=== PATIENT | female | born 1960 | race African-American/Black ===

== ENCOUNTER 2016-06-20 00:36 | Emergency (ER) | payer MEDICARE, OTHER ==
[~2016-06-20] VITALS: Ht 170.2 cm; Wt 80.5 kg
[~2016-06-20 00:36] MED LIST: ASPI81TA3 PO; GABA100C PO; INSU100I14 SC; LEVEM SC; LORA1TAB PO
[2016-06-20 00:56] VITALS: Ht 170.2 cm; Wt 80.5 kg
--- NOTE | 2016-06-20 03:06 | ERA ---
ER Documentation Chief Complaint Date/Time DATE: 06/20/16 TIME: 03:05 Chief Complaint burning while urinating,bl leg swelling,lower back pain denies cp HPI The patient is a 55-year-old female, presenting to the ER because of multiple complaints. She complained of painful urination for 1 day, acute on chronic bilateral leg edema for the last 2 days, chronic low back pain, right index finger pain for 10 days. She was seen and treated for cellulitis with Keflex for the last 10 days with minimal response. She denies fever, chills, neck pain , chest pain, dyspnea, abdominal pain, vomiting, diarrhea, constipation. He does not smoke, drink Past medical history: Diabetes mellitus, hypertension, history of GBS Past surgical history: Ectopic , back surgery ROS All systems reviewed and are negative except as per history of present illness. Medications Home Meds Active Scripts Ondansetron (Ondansetron Odt) 4 Mg Tab.rapdis, 4 MG PO Q6H Y for NAUSEA AND/OR VOMITING, #10 TAB Prov:MAYO BHARDWAJ MD 06/20/16 Hydrocodone/Acetaminophen ([place] 5-325 Tablet) 1 Each Tablet, 1 TAB PO Q6H Y for PAIN, #7 TAB Prov:MAYO BHARDWAJ MD 06/20/16 Amoxicillin/Potassium Clav (Amox-Clav 875-125 mg Tablet) 875-125 mg Tab, 1 TAB PO BID for 10 Days, #20 TAB Prov:MAYO BHARDWAJ MD 06/20/16 Gabapentin* (Neurontin*) 100 Mg Capsule, 100 MG PO TID for 10 Days, #30 CAP Prov:JARROD VEE DO 12/11/15 Reported Medications Aspirin* (Aspirin* Chew) 81 Mg Tab.chew, 81 MG PO DAILY, TAB.CHEW 12/11/15 Insulin Detemir* (Levemir*) 100 U/Ml Vial, 30 UNIT SC HS, VIAL 06/16/15 Insulin Lispro (Humalog) 100 U/Ml Insuln.pen, 0 SC SLIDING SCALE AC, EA 04/14/15 Lorazepam* (Lorazepam*) 1 Mg Tablet, 1 MG PO BID Y for ANXIETY, TAB 02/05/15 Insulin Detemir* (Levemir*) 100 U/Ml Vial, 25 UNIT SC AM, VIAL 02/05/15 Allergies Allergies: Coded Allergies: No Known Allergies (Verified Allergy, Mild, 06/16/15) PMhx/Soc History of Surgery: Yes (tubaligation, gallbladder, l spine tumor, trach) Anesthesia Reaction: No 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 Head: Atraumatic. Eyes: Normal Conjunctiva. ENT: Normal External Ears, Nose and Mouth. Neck: Full range of motion. No meningismus. Resp: Clear to auscultation bilaterally. Cardio: Regular but tachycardic Abd: Soft, non distended, normal bowel sounds, non tender. Skin: No petechiae or rashes. Back: No midline or flank tenderness. Ext: Mild bilateral leg edema, vague bilateral calf tenderness, right index finger with paronychia with pus pocket underneath the fingernail Neur: Awake and alert. No focal deficit Psych: Normal Mood and Affect. Result Diagram: 06/20/16 0418 06/20/16 0418 Results 24 hrs Laboratory Tests Test 06/20/16 04:18 06/20/16 04:23 Activated Partial Thromboplast Time 25.2Sec Anion Gap 17 B-Type Natriuretic Peptide 25PG/ML Basophils # 0.010^3/ul Basophils % 0.8% Blood Urea Nitrogen 10mg/dl Calcium Level 9.3mg/dl Carbon Dioxide Level 26mmol/L Chloride Level 100mmol/L Creatinine 0.51mg/dl Eosinophils # 0.110^3/ul Eosinophils % 2.1% Glucose Level 408mg/dl Hematocrit 40.4% Hemoglobin 14.1g/dl INR International Normalized Ratio 0.94 Lymphocytes # 1.510^3/ul Lymphocytes % 27.7% Mean Corpuscular Hemoglobin 31.5pg Mean Corpuscular Hemoglobin Concent 34.9g/dl Mean Corpuscular Volume 90.2fl Mean Platelet Volume 8.4fl Monocytes # 0.410^3/ul Monocytes % 6.7% Neutrophils # 3.510^3/ul Neutrophils % 62.7% Nucleated Red Blood Cells # 0.010^3/ul Nucleated Red Blood Cells % 0.0/100WBC Platelet Count 67866^3/UL Potassium Level 3.9mmol/L Prothrombin Time 12.6Sec Prothrombin Time Ratio 1.0 Red Blood Count 4.4810^6/ul Red Cell Distribution Width 12.0% Sodium Level 139mmol/L White Blood Count 5.510^3/ul Bedside Urine Blood Negative Bedside Urine Glucose (UA) 0.50% Bedside Urine Ketones (LAB) 2+ Bedside Urine Leukocyte Esterase (L Negative Bedside Urine Nitrite (LAB) Negative Bedside Urine Protein (LAB) Negative Bedside Urine pH (LAB) 5.5 Current Medications Medications (Trade) Dose Ordered Sig/Sheryl Route PRN Reason Start Time Stop Time Status Last Admin Dose Admin Lidocaine (Xylocaine 1% (Mdv) 20 ml) 20 ml ONCE STAT INJ 06/20/16 03:20 06/20/16 03:25 DC Insulin Human Regular (Humulin R) 10 unit ONCE ONCE SC 06/20/16 05:30 06/20/16 05:34 DC Procedures/MDM Procedure: Right index finger paronychia I&D Risks, benefits, alternatives were explained to the patient The right index finger was digitally blocked with lidocaine 1%. The pus pocket underneath the fingernail was evacuated. An incision was made at the proximal fingernail, small amount of pus was expressed. It was dressed with Xeroform. EKG: Read by emergency physician Rate/Rhythm: Sinus tachycardia 104 beats per min QRS, ST, T-waves: No ST elevation, no T wave inversion, low voltage Impression: Abnormal EKG MEDICAL MAKING DECISION: The patient is a 55-year-old female, presenting with acute right index finger paronychia, acute on chronic bilateral leg edema, acute diabetic hyperglycemia. She was treated with regular insulin 10 units subcutaneously for acute diabetic hyperglycemia. The differential diagnoses considered include but are not limited to cellulitis, abscess, CHF, DKA Departure Diagnosis: Primary Impression: Paronychia of right index finger Additional Impressions: Hyperglycemia due to type 2 diabetes mellitus Peripheral edema Condition: Good Comments She was discharged with Augmentin, Zofran ODT, [place] She was advised to return in 2 days for wound check MAYO BHARDWAJ MD Jun 20, 2016 03:05
[2016-06-20 03:09] VITALS: BP 131/83; PULSE 104; RESP 20
[2016-06-20] MEDS ORDERED: LIDOCAINE 1% (MDV) 20 ML INJ INJ STA (03:20)
[2016-06-20 04:24] LABS: URINE BLOOD (Dip) POC Negative (NEGATIVE)
[2016-06-20 04:37] LABS: BASOPHILS % 0.8 % (0.0-2.0); EOSINOPHILS # 0.1 10^3/ul (0.0-0.5); EOSINOPHILS % 2.1 % (0.0-7.0); HEMATOCRIT 40.4 % (37.0-47.0); HEMOGLOBIN 14.1 g/dl (12.0-16.0); LYMPHOCYTES # 1.5 10^3/ul (0.8-2.9); LYMPHOCYTES % 27.7 % (15.0-51.0); MEAN CORPUSCULAR HEMOGLOBIN 31.5 pg (29.0-33.0); MEAN CORPUSCULAR HGB CONC 34.9 g/dl (32.0-37.0); MEAN CORPUSCULAR VOLUME 90.2 fl (82.0-101.0); MEAN PLATELET VOLUME 8.4 fl (7.4-10.4); MONOCYTE # 0.4 10^3/ul (0.3-0.9); MONOCYTES % 6.7 % (0.0-11.0); NEUTROPHIL # 3.5 10^3/ul (1.6-7.5); NEUTROPHILS % 62.7 % (39.0-77.0); PLATELET COUNT 252 10^3/UL (140-440); RED BLOOD COUNT 4.48 10^6/ul (4.20-5.40); UNCORRECTED WBC 5.5 10^3/ul (4.8-10.8); WHITE BLOOD COUNT 5.5 10^3/ul (4.8-10.8)
[2016-06-20 04:39] LABS: CONDITION 1
[2016-06-20 04:44] LABS: POTASSIUM 3.9 mmol/L (3.5-5.1)
[2016-06-20 04:46] LABS: INR 0.94; PROTIME 12.6 Sec (12.2-14.2)
[2016-06-20 04:47] LABS: CREATININE 0.51 mg/dl (0.44-1.00); PARTIAL THROMBOPLASTIN TIME 25.2 Sec (25.0-35.0)
[2016-06-20 04:48] LABS: CALCIUM 9.3 mg/dl (8.4-10.2)
--- NOTE | 2016-06-20 04:55 | RADRPT ---
PROCEDURE: XR Chest. CLINICAL INDICATION: Shortness of breath. TECHNIQUE: AP Portable chest. COMPARISON: 12/11/2015 FINDINGS: The cardiomediastinal silhouette is normal. The lungs are clear. The osseous structures are unrema rkable. IMPRESSION: No acute findings. RPTAT: HIKT .Jayden Phelps MD, MD Date Time Electronically viewed and signed by .Jayden Phelps MD, MD on 06/20/2016 04:54 .T/
--- NOTE | 2016-06-20 04:55 | RADRPT ---
PROCEDURE: US bilateral lower extremity venous Doppler CLINICAL INDICATION: Bilateral swelling TECHNIQUE: Multiple sonographic images of the bilateral lower extremity deep venous system was obt ained utilizing grayscale, color-flow, compressive sonography and Doppler imaging with augmentation. COMPARISON: There are no similar studies submitted for comparison. FINDINGS: There is normal compressibility and flow within the bilateral common femoral, superficial femoral, p opliteal, and calf veins. IMPRESSION: No evidence of DVT within the lower extremities. RPTAT: HIKT .Jayden Phelps MD, MD Date Time Electronically viewed and signed by .Jayden Phelps MD, MD on 06/20/2016 04:54 .T/
[2016-06-20] MEDS ORDERED: AMOX1TAB10 PO (05:30)
[2016-06-20] MEDS ORDERED: INSULIN REGULAR, HUMAN 100 UNIT/1 ML 3ML VIAL SC ONE (05:30)
[2016-06-20] MEDS ORDERED: HYDR-906 PO (05:31)
[2016-06-20] MEDS ORDERED: ONDA4TAB14 PO (05:31)
== END 2016-06-20 06:07 | disposition home or self-care (01) ==
LOC: E/R 00:36
DX: L03.011 Cellulitis of right finger (principal); I10 Essential (primary) hypertension; R60.0 Localized edema; E11.65 Type 2 diabetes mellitus with hyperglycemia; R06.02 Shortness of breath; Z79.82 Long term (current) use of aspirin; Z79.4 Long term (current) use of insulin
CPT/HCPCS: 26010; 36415; 71010; 80048; 81003; 82962; 83880; 85025; 85610; 85730; 93005; 93965; 96372; 99285; J1815

== ENCOUNTER 2016-06-23 09:50 | Emergency (ER) | payer MEDICARE, OTHER ==
[~2016-06-23] VITALS: Ht 170.2 cm; Wt 81.0 kg
[~2016-06-23 09:50] MED LIST changes: +AMOX1TAB10 PO; +HYDR-906 PO; +ONDA4TAB14 PO
[2016-06-23 09:54] VITALS: Ht 170.2 cm; Wt 81.0 kg
--- NOTE | 2016-06-23 11:34 | ERD ---
ER Documentation Chief Complaint Date/Time DATE: 06/23/16 TIME: 11:31 Chief Complaint RT 2ND FINGER RECHECK HPI This patient is a 55-year-old [id number] female presenting to the emergency department for right index finger recheck after having a paronychia drained in the emergency department 3 days ago. The patient is currently on Augmentin and has been taking all of her antibiotics with no adverse side effects. The patient denies any discharge, bleeding, from the area she also denies any chills, fevers, nausea, vomiting, diarrhea, pain at the site, or other symptoms. ROS All systems reviewed and are negative except as per history of present illness. Medications Home Meds Active Scripts Ondansetron (Ondansetron Odt) 4 Mg Tab.rapdis, 4 MG PO Q6H Y for NAUSEA AND/OR VOMITING, #10 TAB Prov:MAYO BHARDWAJ MD 06/20/16 Hydrocodone/Acetaminophen ([place] 5-325 Tablet) 1 Each Tablet, 1 TAB PO Q6H Y for PAIN, #7 TAB Prov:MAYO BHARDWAJ MD 06/20/16 Amoxicillin/Potassium Clav (Amox-Clav 875-125 mg Tablet) 875-125 mg Tab, 1 TAB PO BID for 10 Days, #20 TAB Prov:MAYO BHARDWAJ MD 06/20/16 Gabapentin* (Neurontin*) 100 Mg Capsule, 100 MG PO TID for 10 Days, #30 CAP Prov:JARROD VEE DO 12/11/15 Reported Medications Aspirin* (Aspirin* Chew) 81 Mg Tab.chew, 81 MG PO DAILY, TAB.CHEW 12/11/15 Insulin Detemir* (Levemir*) 100 U/Ml Vial, 30 UNIT SC HS, VIAL 06/16/15 Insulin Lispro (Humalog) 100 U/Ml Insuln.pen, 0 SC SLIDING SCALE AC, EA 04/14/15 Lorazepam* (Lorazepam*) 1 Mg Tablet, 1 MG PO BID Y for ANXIETY, TAB 02/05/15 Insulin Detemir* (Levemir*) 100 U/Ml Vial, 25 UNIT SC AM, VIAL 02/05/15 Allergies Allergies: Coded Allergies: No Known Allergies (Verified Allergy, Mild, 06/16/15) PMhx/Soc History of Surgery: Yes (tubaligation, gallbladder, l spine tumor, trach) Anesthesia Reaction: No 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 GENERAL: Alert and interactive. No acute distress. HEAD: Head is normocephalic and atraumatic. EYES: EOMI. No scleral icterus. No conjunctival injection. ENT: Moist mucosa. NECK: Supple. Full range of motion. RESPIRATORY: Normal respiratory effort. Clear breath sounds bilaterally. No wheezing, rales, or rhonchi. CV: Regular rate and rhythm. Normal S1 S2. No S3 or S4. No murmurs. ABDOMEN: Soft, non-distended, non-tender. No guarding. No rebound. No masses. EXTREMITIES: No deformity. SKIN: There is a well-healing paronychia to the right index finger with no active bleeding, no active discharge, no warmth, and no erythema. NEUROLOGIC: Alert and oriented x 4. Speech is normal. Moves all extremities equally. No motor or sensory deficits noted. Procedures/MDM 55-year-old female presents to the emergency department for wound recheck of the right index finger. The patient had a paronychia here drained 3 days ago. The patient is healing well. On physical examination there are no obvious signs of infection or cellulitis. The patient is afebrile. The patient was advised to continue taking her antibiotics. The wound was cleaned with an alcohol prep pad and bacitracin and a Band-Aid was applied. The patient was advised to follow-up with her primary medical doctor in 1-2 days for recheck. The patient was advised to return here for any signs of infection including but not limited to fevers, redness, or discharge. The patient is stable for discharge at this time and her questions and concerns have been addressed. Departure Diagnosis: Primary Impression: Follow-up examination for injury Condition: Stable Patient Instructions: Caring for Your Wound Additional Instructions: Follow-up with your primary care physician within 1 week. Return to the emergency department immediately should you have any new or worsening symptoms, uncontrolled fevers, or other unexplained symptoms. Take all medications as directed. ISAAC PATEL PA-C Jun 23, 2016 11:34
== END 2016-06-23 12:16 | disposition home or self-care (01) ==
LOC: FTE 09:50
DX: Z48.01 Encounter for change or removal of surgical wound dressing (principal); E11.9 Type 2 diabetes mellitus without complications; Z79.82 Long term (current) use of aspirin; Z79.4 Long term (current) use of insulin
CPT/HCPCS: 99281

== ENCOUNTER 2016-06-30 09:36 | Emergency (ER) | END 2016-06-30 10:42 | disposition home or self-care (01) | DX: R30.0 Dysuria (principal); L03.011 Cellulitis of right finger; E11.9 Type 2 diabetes mellitus without complications ==

== ENCOUNTER 2017-07-26 10:25 | Emergency (ER) | END 2017-07-26 20:21 | disposition left against medical advice (07) ==